=== PATIENT | female | born 1945 | race Caucasian/White ===

== ENCOUNTER 2021-02-27 16:32 | Inpatient (IN) | payer OTHER ==
[~2021-02-27] VITALS: Ht 175.3 cm; Wt 107.0 kg
[2021-02-27] MEDS ORDERED: ASPIRIN 325 MG TABLET PO ONE (16:57)
--- NOTE | 2021-02-27 16:58 | NUR ---
THIS IS A 75 YO F W/ C/O CP X1.5 HOURS.
--- NOTE | 2021-02-27 16:58 | NUR ---
[facility] CALLED @ 1650. CARDIOLOGY CALLED BACK @ 1650.
--- NOTE | 2021-02-27 17:09 | NUR ---
PT RESTING ON GURNEY W/ CALL LIGHT IN REACH, SIDE RAILS UPX2 AND FAMILY AT BEDSIDE. VSS. READY FOR METROLOGY SPECIALIST.
[2021-02-27 17:13] LABS: BASOPHILS % (AUTO) 1 % (0-1); EOSINOPHILS % (AUTO) 1 % (1-7); LYMPHOCYTES % (AUTO) 18 % (22-44); MEAN CORPUSCULAR HEMOGLOBIN 34.4 pg (27.0-34.8); MEAN CORPUSCULAR HGB CONC 33.7 g/dL (32.4-35.8); MEAN PLATELET VOLUME 8.5 fL (7.4-10.4); MONOCYTES % (AUTO) 7 % (2-9); NEUTROPHILS % (AUTO) 74 % (42-75); PLATELET COUNT 221 x10^3/uL (130-400); RED BLOOD COUNT 4.65 x10^6/uL (3.82-5.3); RED CELL DISTRIBUTION WIDTH 13.2 % (9.6-15.2)
--- NOTE | 2021-02-27 17:16 | NUR ---
MICKEY (FRIEND) OK TO CALL W/ UPDATES,
[2021-02-27] MEDS ORDERED: FENTANYL PF 100 MCG/2ML ONE (17:19)
[2021-02-27] MEDS ORDERED: ATORVASTATIN (17:19)
[2021-02-27] MEDS ORDERED: GABAPENTIN (17:19)
[2021-02-27] MEDS ORDERED: HYDROCHLOROTHIAZIDE (17:19)
[2021-02-27] MEDS ORDERED: LISINOPRIL (17:19)
[2021-02-27] MEDS ORDERED: MIDAZOLAM 1 MG/ML, 5ML ONE (17:19)
[2021-02-27] MEDS ORDERED: LIDOCAINE 2%, 20ML ONE (17:20)
[2021-02-27] MEDS ORDERED: BIVALIRUDIN 250 MG ONE ×2 (17:20→17:44)
--- NOTE | 2021-02-27 17:20 | NUR ---
PT TRANSPORTED TO [facility] W/ BOOK PACKER AND THIS RN. PT AWAKE AND ALERT, VSS, NADN.
[2021-02-27 17:24] LABS: TROPONIN I < 0.015 ng/mL (0.000-0.045)
[2021-02-27 17:25] LABS: INTERNATIONAL NORMALIZED RATIO 1.03 (0.93-1.1); PARTIAL THROMBOPLASTIN TIME < 23 Seconds (25-31)
[2021-02-27] MEDS ORDERED: TICAGRELOR 90 MG TABLET ONE (18:07)
[2021-02-27] MEDS ORDERED: BIVALIRUDIN 250 MG in SODIUM CHLORIDE 0.9% 50 ML IV SCH (18:30)
[2021-02-27] MEDS ORDERED: METOPROLOL TARTRATE 25 MG TAB PO ONE (18:30)
[2021-02-27] MEDS: SODIUM CHLORIDE 0.9% 1,000 ML IV SCH (20:39)
[2021-02-27] MEDS: TICAGRELOR 90 MG TABLET PO SCH (20:39)
[2021-02-27] MEDS: ATORVASTATIN 80 MG TABLET PO SCH (20:40)
[2021-02-28] MEDS: SODIUM CHLORIDE 0.9% 1,000 ML IV SCH (02:30)
[2021-02-28 04:39] LABS: CALCIUM 9.8 mg/dL (8.5-10.1); CHLORIDE 111 mmol/L (98-107); CREATININE 1.02 mg/dL (0.55-1.02)
[2021-02-28 04:50] LABS: ANION GAP 3 mmol/L (5-15)
[2021-02-28] MEDS ORDERED: ALBUTEROL/IPRATROPIUM 2.5MG/0.5MG, 3 ML ONE (07:57)
[2021-02-28] MEDS ORDERED: LISINOPRIL 10 MG TABLET PO SCH (09:00)
[2021-02-28] MEDS: ALBUTEROL/IPRATROPIUM 2.5MG/0.5MG, 3 ML NPPB SCH ×3 (09:00→20:13)
[2021-02-28] MEDS: HYDROCHLOROTHIAZIDE 25 MG TABLET PO SCH (09:47)
[2021-02-28] MEDS: ASPIRIN 81 MG TABLET EC PO SCH (09:47)
[2021-02-28] MEDS: TICAGRELOR 90 MG TABLET PO SCH ×2 (09:47→22:08)
[2021-02-28] MEDS: LISINOPRIL 20 MG TABLET PO SCH (09:47)
[2021-02-28 12:27] VITALS: BP 146/86
[2021-02-28] MEDS ORDERED: TIOT4MIS5 INH (15:11)
[2021-02-28 18:13] VITALS: BP 131/69
[2021-02-28] MEDS ORDERED: SPIRIVA RESPIMAT HOMEINH SCH (21:00)
[2021-02-28 22:02] VITALS: BP 91/56
[2021-02-28] MEDS: ATORVASTATIN 80 MG TABLET PO SCH (22:08)
[2021-03-01 01:27] VITALS: BP 98/64
[2021-03-01 05:04] LABS: ANION GAP 4 mmol/L (5-15); CALCIUM 9.6 mg/dL (8.5-10.1); CHLORIDE 111 mmol/L (98-107)
[2021-03-01 05:05] LABS: CREATININE 0.84 mg/dL (0.55-1.02)
[2021-03-01] MEDS: ALBUTEROL/IPRATROPIUM 2.5MG/0.5MG, 3 ML NPPB SCH (07:01)
[2021-03-01 08:45] VITALS: BP 102/70
[2021-03-01] MEDS: LISINOPRIL 20 MG TABLET PO SCH (09:00)
[2021-03-01] MEDS: HYDROCHLOROTHIAZIDE 25 MG TABLET PO SCH (09:00)
[2021-03-01] MEDS: TICAGRELOR 90 MG TABLET PO SCH (09:15)
[2021-03-01] MEDS: ASPIRIN 81 MG TABLET EC PO SCH (09:15)
[2021-03-01] MEDS ORDERED: ASPI81TA45 PO (10:02)
[2021-03-01] MEDS ORDERED: ATOR-2 PO (10:02)
[2021-03-01] MEDS ORDERED: TICA90TA PO (10:02)
== END 2021-03-01 12:35 | disposition home or self-care (01) | DRG 247 ==
LOC: ED 17:04 → CCU 18:07 → 5SO 02-28 12:03 → DCLOUNGE 03-01 12:17
PROVIDERS: ADMIT Internal Medicine Cardiovascular Disease; ATTEND Internal Medicine Cardiovascular Disease
PROC: 027034Z Dilation of Coronary Artery, One Artery with Drug-eluting Intraluminal Device, Percutaneous Approach (ICD-10-PCS; principal; 2021-02-27)
PROC: 4A023N7 Measurement of Cardiac Sampling and Pressure, Left Heart, Percutaneous Approach (ICD-10-PCS; 2021-02-27)
PROC: B2111ZZ Fluoroscopy of Multiple Coronary Arteries using Low Osmolar Contrast (ICD-10-PCS; 2021-02-27)
PROC: B2151ZZ Fluoroscopy of Left Heart using Low Osmolar Contrast (ICD-10-PCS; 2021-02-27)
DX: I21.19 ST elevation (STEMI) myocardial infarction involving other coronary artery of inferior wall (principal); E66.9 Obesity, unspecified; E11.9 Type 2 diabetes mellitus without complications; E78.5 Hyperlipidemia, unspecified; F17.200 Nicotine dependence, unspecified, uncomplicated; I10 Essential (primary) hypertension; I25.10 Atherosclerotic heart disease of native coronary artery without angina pectoris; J45.909 Unspecified asthma, uncomplicated; G89.29 Other chronic pain; R00.1 Bradycardia, unspecified; Z20.822 Contact with and (suspected) exposure to COVID-19; Z68.34 Body mass index [BMI] 34.0-34.9, adult
CPT/HCPCS: 36415; 71045; 80047; 80048; 84484; 85025; 85610; 85730; 87081; 87635; 93005; 93306; 93356; 93458; 94640; 99156; 99157; C1760; C1769; C1894; G0378; J0583; J2250; J3010; C1725; C1874; C1887; J7030; Q9967